=== PATIENT | male | born 1940 | race Caucasian/White ===

== ENCOUNTER 2022-02-22 06:58 | Day surgery (SDC) | payer MEDICARE, BC ==
[~2022-02-22] VITALS: Ht 170.2 cm; Wt 72.3 kg
[2022-02-22 07:00] VITALS: BP 143/58
[2022-02-22] MEDS ORDERED: normal saline 1,000 ML IV SCH (07:20)
[2022-02-22] MEDS ORDERED: ASPI81TA52 PO (07:29)
[2022-02-22] MEDS ORDERED: METO-395 PO (07:29)
[2022-02-22] MEDS ORDERED: AZEL137S4 (07:29)
[2022-02-22] MEDS ORDERED: ATOR40TA72 PO (07:29)
[2022-02-22 07:48] LABS: BASOPHILS # (AUTO) 0.1 X10'3 (0-0.2); BASOPHILS % (AUTO) 1.1 % (0-1); EOSINOPHILS # (AUTO) 0.2 X10'3 (0-0.9); EOSINOPHILS % (AUTO) 3.6 % (0-6); HEMATOCRIT 37.8 % (42.0-52.0); HEMOGLOBIN 12.5 g/dl (14.0-17.9); LYMPHOCYTES % (AUTO) 18.9 % (21-51); MEAN CORPUSCULAR HEMOGLOBIN 29.4 PG (27.0-31.0); MEAN CORPUSCULAR VOLUME 88.9 FL (78-98); MEAN PLATELET VOLUME 6.9 FL (7.4-10.4); MONOCYTES # (AUTO) 0.7 X10'3 (0-0.9); MONOCYTES % (AUTO) 13.6 % (2-12); NEUTROPHILS # (AUTO) 3.4 X10'3 (1.8-7.7); NEUTROPHILS % (AUTO) 62.8 % (42-75); PLATELET COUNT 268 X10'3 (140-440); RED BLOOD COUNT 4.26 X10'6 (4.70-6.10); RED CELL DISTRIBUTION WIDTH 14.5 % (11.5-14.5); WHITE BLOOD COUNT 5.3 X10'3 (4.5-11.0)
[2022-02-22 08:00] LABS: ALBUMIN 3.3 G/DL (3.4-5.0); ANION GAP 6 (8-16); BLOOD UREA NITROGEN 19 MG/DL (7-18); BUN/CREATININE RATIO 22.6 (5.4-32.0); CALCIUM 8.9 MG/DL (8.5-10.1); CHLORIDE 105 MMOL/L (99-107); CREATININE 0.84 MG/DL (0.60-1.10); GLUCOSE 92 MG/DL (70-104); POTASSIUM 4.2 MMOL/L (3.5-5.1); SODIUM 140 MMOL/L (135-145); eGFR 87 ML/MIN
[2022-02-22] MEDS ORDERED: midazolam 1 mg/ML 2ml injection ONE (08:55)
[2022-02-22] MEDS ORDERED: fentaNYL/PF 50MCG/1 ML 2ML syringe ONE (08:55)
[2022-02-22] MEDS ORDERED: LIDOcaine 1% (10mg/ml) 2ml vial ONE ×2 (08:55→09:16)
[2022-02-22 09:49] VITALS: BP 148/60
[2022-02-22 10:06] VITALS: BP 143/69
[2022-02-22] MEDS ORDERED: normal saline 1000ml 400 ML IV SCH (10:17)
[2022-02-22] MEDS ORDERED: HYDROcodone/acetaminophen 10/325mg tab PO PRN (10:20)
[2022-02-22] MEDS ORDERED: HYDROcodone/acetaminophen 5mg/325mg tablet PO PRN (10:20)
[2022-02-22 10:21] VITALS: BP 135/57
[2022-02-22 10:36] VITALS: BP 131/52
== END 2022-02-22 11:02 | disposition home or self-care (01) ==
LOC: SSTAY O 06:58
PROVIDERS: ATTEND Internal Medicine Cardiovascular Disease
DX: Z45.09 Encounter for adjustment and management of other cardiac device (principal); I48.0 Paroxysmal atrial fibrillation; I25.10 Atherosclerotic heart disease of native coronary artery without angina pectoris; Z79.899 Other long term (current) drug therapy
CPT/HCPCS: 33286; 36415; 80048; 83735; 85025; 85610; 93005; A6258; J2250; J3010; J3490; J7030; A6449